=== PATIENT | male | born 1960 | race Hispanic/Latino ===

== ENCOUNTER 2017-02-19 07:23 | Observation (INO) | payer BC ==
[2017-02-19 07:26] VITALS: BMI 36.6
[2017-02-19 08:17] LABS: ADD MANUAL DIFF? NO
[2017-02-19 08:25] LABS: BASO # 0.07 K/mm3 (0.0-2.0); BASO % 0.7 % (0.0-3.0); EOS # 0.3 (0.0-0.7); EOS % 2.8 % (1.5-5.0); GRAN % 56.4 % (50.0-68.0); LYMPH # 2.9 (1.2-3.4); MEAN CORPUSCULAR HEMOGLOBIN 31.9 pg (25.0-35.0); MEAN CORPUSCULAR HGB CONC 35.4 g/dl (31.0-37.0); MEAN PLATELET VOLUME 9.9 fl (7.0-11.0); MONO % 10.1 % (1.0-6.0); PLATELET COUNT 151 10^3/uL (120.0-450.0); RED CELL DISTRIBUTION WIDTH 13.2 % (11.5-14.5); WHITE BLOOD COUNT 9.6 10^3/ul (4.5-11.0)
[2017-02-19 08:31] LABS: ALB/GLOB RATIO 1.2 (1.1-1.8); ALKALINE PHOSPHATASE 96 U/L (38-133); ALT/SGPT 51 U/L (7-56); AST/SGOT 41 U/L (15-59); BILIRUBIN,TOTAL 0.6 mg/dL (0.2-1.3); BLOOD UREA NITROGEN 11 mg/dL (7-21); CALCIUM 9.3 mg/dL (8.4-10.5); CARBON DIOXIDE 23 mmol/L (21-33); CHLORIDE 108 mmol/L (98-107); CHOLESTEROL 193 mg/dL (130-200); GFR AFRICAN-AMERICAN > 60; GLUCOSE,RANDOM 101 mg/dL (70-110); INR 1.02 (0.93-1.08); PARTIAL THROMBOPLASTIN TIME 26.1 Seconds (23.7-30.8); POTASSIUM 3.9 mmol/L (3.6-5.0); SODIUM 139 mmol/L (132-148)
[2017-02-19 08:49] LABS: TROPONIN I < 0.01 ng/mL
--- NOTE | 2017-02-19 09:03 | CT ---
PROCEDURE: CT HEAD WITHOUT CONTRAST. HISTORY: left sided weakness r/o cva COMPARISON: None available. TECHNIQUE: Axial computed tomography images were obtained through the head/brain without intravenous contrast. Radiation dose: Total exam DLP = 871 mGy-cm. This CT exam was performed using one or more of the following dose reduction techniques: Automated exposure control, adjustment of the mA and/or kV according to patient size, and/or use of iterative reconstruction technique. FINDINGS: HEMORRHAGE: No intracranial hemorrhage. BRAIN: No mass effect or edema. No atrophy or chronic microvascular ischemic changes. VENTRICLES: Unremarkable. No hydrocephalus. CALVARIUM: Unremarkable. PARANASAL SINUSES: Unremarkable as visualized. No significant inflammatory changes. MASTOID AIR CELLS: Unremarkable as visualized. No inflammatory changes. OTHER FINDINGS: None. IMPRESSION: Normal CT of the Head.
--- NOTE | 2017-02-19 09:06 | ED PDOC ---
Arrival/HPI - General Chief Complaint: Weakness/Neurological Deficit Time Seen by Provider: 02/19/17 07:28 Historian: Spouse - History of Present Illness Narrative History of Present Illness (Text): 02/19/17 07:30 A 56 year old male, whose past medical history includes hyperlipidemia and pre- diabetes, presents to the emergency department complaining of left arm weakness. Patient reports yesterday at 0430 he woke up from his sleep with left arm numbness and weakness. Patient notes later on that he had some numbness and weakness to the left foot. Patient say he was at work today and his co-worker noticed he was having trouble breathing, which quickly resolved. Patient states he did not notice or feel as though he was short of breath. Patient is concerned he might of had a stroke so he decided to come to the emergency department today for evaluation. Patient notes a mild headache yesterday but denies any fever, nausea, vomiting, chest douglas, or any other complaints at this time. Patient mention he has a intermittent cough for smoking and he uses the CPAP at night. PMD: Peyton from a clinic/ Dr. Nola Anderson Time/Duration: 24 hours Symptom Onset: Sudden Symptom Course: Unchanged Quality: Other Activities at Onset: Rest Context: Home Past Medical History - Provider Review Nursing Documentation Reviewed: Yes - Tetanus Immunization Tetanus Immunization: Up to Date - Past Medical History Past Medical History: No Previous - Cardiac Hx Cardiac Disorders: No - Pulmonary Hx Respiratory Disorders: Yes Hx Chronic Obstructive Pulmonary Disease (COPD): Yes Hx Sleep Apnea: Yes - Neurological Hx Neurological Disorder: No - HEENT Hx HEENT Disorder: No - Renal Hx Renal Disorder: No - Endocrine/Metabolic Hx Endocrine Disorders: No - Hematological/Oncological Hx Blood Disorders: No - Integumentary Hx Dermatological Disorder: No - Musculoskeletal/Rheumatological Hx Musculoskeletal Disorders: No - Gastrointestinal Hx Gastrointestinal Disorders: No - Genitourinary/Gynecological Hx Genitourinary Disorders: No - Psychiatric Hx Psychophysiologic Disorder: No Hx Depression: No Hx Emotional Abuse: No Hx Physical Abuse: No Hx Substance Use: No - Past Surgical History Past Surgical History: No Previous - Surgical History Hx Appendectomy: Yes - Suicidal Assessment Feels Threatened In Home Enviroment: No Family/Social History - Physician Review Nursing Documentation Reviewed: Yes Family/Social History: Unknown Family HX Smoking Status: Light Smoker < 10 Cigarettes Daily Hx Alcohol Use: No Hx Substance Use: No Hx Substance Use Treatment: No Allergies/Home Meds Allergies/Adverse Reactions: Allergies No Known Allergies Allergy (Verified 02/19/17 07:26) Home Medications: Home Meds Medication Instructions Recorded Confirmed Fluticasone/Vilanterol [Breo 1 inh INH DAILY 02/19/17 02/19/17 Ellipta 100-25 Mcg INH] Pramipexole [Mirapex] 0.25 mg PO HS 02/19/17 02/19/17 traMADol [Ultram] 50 mg PO PRN PRN 02/19/17 02/19/17 Review of Systems - Physician Review All systems were reviewed & negative as marked: Yes - Review of Systems Constitutional: absent: Fevers Respiratory: SOB, Cough Cardiovascular: absent: Chest Pain Gastrointestinal: absent: Abdominal Pain, Nausea, Vomiting Musculoskeletal: Other (left upper and lower extremity weakness and numbness) Neurological: Headache Physical Exam Vital Signs Reviewed: Yes Vital Signs Temp Pulse Resp BP Pulse Ox 02/19/17 09:23 73 18 98/76 L 97 02/19/17 07:23 98.3 F 78 18 125/55 L 99 Temperature: Afebrile Blood Pressure: Normal Pulse: Regular Respiratory Rate: Normal Appearance: Positive for: Well-Appearing, Non-Toxic, Comfortable Pain Distress: None Mental Status: Positive for: Alert and Oriented X 3 Finger Stick Blood Glucose: 104 - Systems Exam Head: Present: Atraumatic, Normocephalic Pupils: Present: PERRL Extroacular Muscles: Present: EOMI Conjunctiva: Present: Normal Mouth: Present: Moist Mucous Membranes Neck: Present: Normal Range of Motion Respiratory/Chest: Present: Clear to Auscultation, Good Air Exchange. No: Respiratory Distress, Accessory Muscle Use Cardiovascular: Present: Regular Rate and Rhythm, Normal S1, S2. No: Murmurs Abdomen: Present: Normal Bowel Sounds. No: Tenderness, Distention, Peritoneal Signs Back: Present: Normal Inspection Upper Extremity: Present: Other (slight weakness to the left upper extremity). No: Cyanosis, Edema Lower Extremity: Present: Normal Inspection. No: Edema Neurological: Present: GCS=15, CN II-XII Intact, Speech Normal, Normal Sensory Function, Normal Cerebellar Funct, Norm Deep Tendon Reflexes. No: Motor Func Grossly Intact (left hand weakness) Skin: Present: Warm, Dry, Normal Color. No: Rashes Psychiatric: Present: Alert, Oriented x 3, Normal Insight, Normal Concentration Medical Decision Making ED Course and Treatment: 02/19/17 07:30 Impression: A 56 year old male with left sided numbness/weakness. Differential Diagnosis include but are not limited to: ACS vs. CVA Plan: -- EKG -- Head CT -- Chest X-ray -- Labs -- Reassess and disposition Prior Visits: Notes and results from previous visits were reviewed. The patient last presented to the emergency department on 08/12/14 for evaluation of left ear pain. Progress Notes: EKG: Ordered, reviewed, and independently interpreted the EKG. Rate : 82 BPM Rhythm : NSR Interpretation : No ST-segment elevations or depressions, no T-wave inversions, normal intervals. Chest X-ray Impression: As read by the emergency department physician, no acute findings. 02/19/17 09:[address] Shaver, who is aware and accept the patient under his services to rule out CVA. I have discussed the results and plan with the patient, who expresses understanding. Patient given the opportunity to ask question, all questions were answered and there is agreement with the plan to be admitted to the hospital. 02/19/17 09:[address]: Creator : Jalen Elise MD COMPARISON: None available. FINDINGS: HEMORRHAGE: No intracranial hemorrhage. BRAIN: No mass effect or edema. No atrophy or chronic microvascular ischemic changes. VENTRICLES: Unremarkable. No hydrocephalus. CALVARIUM: Unremarkable. PARANASAL SINUSES: Unremarkable as visualized. No significant inflammatory changes. MASTOID AIR CELLS: Unremarkable as visualized. No inflammatory changes. OTHER FINDINGS: None. IMPRESSION: Normal CT of the Head. CT head negative. Aspirin ordered. Case discussed with Dr. Shaver who evaluated patient and will place to his service for r/o CVA. Patient comfortable with no new complaints. - Critical Care Critical Care Minutes: 30 minutes - Lab Interpretations Lab Results: 02/19/17 08:15 02/19/17 08:15 Lab Results 02/19/17 08:37: Blood Type O NEGATIVE, Antibody Screen Negative, BBK History Checked No verified bt 02/19/17 08:15: Sodium 139, Potassium 3.9, Chloride 108 H, Carbon Dioxide 23, Anion Gap 12, BUN 11, Creatinine 1.1, Est GFR ( Amer) > 60, Est GFR (Non- Af Amer) > 60, Random Glucose 101, Calcium 9.3, Total Bilirubin 0.6, AST 41, ALT 51, Alkaline Phosphatase 96, Troponin I < 0.01, NT-Pro-B Natriuret Pep < 11.1, Total Protein 8.0, Albumin 4.3, Globulin 3.7, Albumin/Globulin Ratio 1.2, Triglycerides 199 H, Cholesterol 193, LDL Cholesterol Direct 139 H, HDL Cholesterol 36 02/19/17 08:15: PT 11.0, INR 1.02, APTT 26.1 02/19/17 08:15: WBC 9.6, RBC 5.11, Hgb 16.3, Hct 46.0, MCV 90.0, MCH 31.9, MCHC 35.4, RDW 13.2, Plt Count 151, MPV 9.9, Gran % 56.4, Lymph % (Auto) 30.0, [place] % (Auto) 10.1 H, Eos % (Auto) 2.8, Baso % (Auto) 0.7, Gran # 5.40, Lymph # 2.9, Traverse # 1.0 H, Eos # 0.3, Baso # 0.07 02/19/17 07:31: POC Glucose (mg/dL) 104 I have reviewed the lab results: Yes Interpretation: All labs normal - RAD Interpretation Radiology Orders: 02/19/17 08:05 HEAD W/O CONTRAST [CT] Stat CHEST PORTABLE [RAD] Stat Child Welfare Consultant: Radiologist - Medication Orders Current Medication Orders: Home Med (Home Med) 1 unit INH DAILY [facility] Sodium Chloride (Sodium Chloride 0.45%) 1,000 mls @ 30 mls/hr IV .Q24H [facility] Last Admin: 02/19/17 09:48 Dose: 30 mls/hr Pramipexole Dihydrochloride (Mirapex) 0.25 mg PO HS [place] Tramadol HCl (Ultram) 50 mg PO BID PRN PRN Reason: Pain, moderate (4-7) Discontinued Medications Aspirin (Aspirin) 325 mg PO STAT STA Stop: 02/19/17 09:17 Last Admin: 02/19/17 09:36 Dose: 325 mg NIHSS Scale ([place]) Time Performed: 07:30 - How Severe is the Stoke Baseline Level of Consciousness: 0=Alert LOC to Questions: 0=Both comments correct LOC to commands: 0=Obeys both correctly Best Gaze: 0=Normal Visual: 0=No visual loss Facial: 0=Normal Motor Arm - Left: 0=No drift Motor Arm - Right: 0=No drift Motor Leg - Left: 0=No drift Motor Leg - Right: 0=No drift Limb Ataxia: 0=Absent Sensory: 0=Normal Best Language: 0=No aphasia Dysarthia: 0=Normal articulation Extinction & Inattention (Neglect): 0=Normal, no object Score: 0 Risk Level: No Stroke Risk rTPA Inclusion/Exclusion - Refusal of Treatment Patient Refused Treatment: No - Inclusion Criteria for Altepase Patient is 18 years or Older: Yes The Clinical Diagnosis of Ischemic Stroke That is Causing a Potentially Disabling Neurological Deficit: Yes Time of Onset is Well Established to be Less Than 270 Minute Before Treatment Would Begin: No Risk/Benefit Discussed With Patient/Family Member Present: No - Scribe Statement Gale Powers Provider Scribe Attestation: All medical record entries made by the Scribe were at my direction and personally dictated by me. I have reviewed the chart and agree that the record accurately reflects my personal performance of the history, physical exam, medical decision making, and the department course for this patient. I have also personally directed, reviewed, and agree with the discharge instructions and disposition. Disposition/Present on Arrival - Present on Arrival Any Indicators Present on Arrival: No History of DVT/PE: No History of Uncontrolled Diabetes: No Urinary Catheter: No History of Decub. Ulcer: No History Surgical Site Infection Following: None - Disposition Have Diagnosis and Disposition been Completed?: Yes Diagnosis: CVA (cerebral vascular accident) Disposition: HOSPITALIZED Disposition Time: 09:01 Patient Plan: Observation Condition: FAIR
[2017-02-19] MEDS ORDERED: Sodium Chloride 0.45% 1,000 ML IV SCH (09:15)
[2017-02-19 10:09] VITALS: O2SAT 97
--- NOTE | 2017-02-19 11:40 | RAD ---
PROCEDURE: CHEST RADIOGRAPH, 1 VIEW HISTORY: sob COMPARISON: None available. FINDINGS: LUNGS: Clear. PLEURA: No pneumothorax or pleural fluid seen. CARDIOVASCULAR: Normal. OSSEOUS STRUCTURES: No significant abnormalities. VISUALIZED UPPER ABDOMEN: Normal. OTHER FINDINGS: None. IMPRESSION: No active disease.
--- NOTE | 2017-02-19 11:47 | MRI ---
PROCEDURE: MRI BRAIN WITHOUT CONTRAST HISTORY: r/o cva COMPARISON: None. TECHNIQUE: Multiplanar, multisequence MR images of the brain were obtained without intravenous contrast enhancement. FINDINGS: HEMORRHAGE: None DWI: No evidence of an acute or early subacute infarction. BRAIN PARENCHYMA: No mass effect or edema. No atrophy or chronic microvascular ischemic changes. VENTRICLES: Unremarkable. No hydrocephalus. CRANIUM: Unremarkable. ORBITS: Grossly unremarkable. PARANASAL SINUSES/MASTOIDS: Clear VASCULAR SYSTEM: Skull base flow voids intact. OTHER FINDINGS: None. IMPRESSION: Unremarkable non contrast enhanced MRI of the brain.
--- NOTE | 2017-02-19 12:29 | HP ---
I was called down to the ER by Dr. Alvarez, the Emergency Room doctor, to check on the patient. He i s having some strange feelings in his body, mostly on the left side with numbness and tingling, a lit tle bit of weakness, also some weird feelings in his chest like electrical feelings that are going th rough his chest. PAST MEDICAL HISTORY: Prediabetes, COPD, on CPAP. He is obese, just not feeling well, started yeste rday at 4:30. He is also having numbness and tingling in his lower extremities. ALLERGIES: He has no known drug allergies. He takes Mirapex and Ultram at home. No known surgeries at this time. REVIEW OF SYSTEMS: No acute vision changes or hearing changes, but numbness and tingling in his face and lips and tongue. No sore throat. Mild chest discomfort on the left side with electric shocks g oing through the left side of his chest. No shortness of breath unless at nighttime from his COPD, h e is on CPAP, but nothing acute at this time, no changes in his breathing. No nausea, vomiting, cons tipation, diarrhea. Extremities have trace edema. He can move the legs and arms. The left side is weaker than the right side with numbness and tingling also. PHYSICAL EXAMINATION: VITAL SIGNS: Temp 98.3, 78 pulse, 125/55 blood pressure, 18 respiratory rate, 99% O2 sat on room air . HEENT: His head is atraumatic, normocephalic. His extraocular muscles are intact. Pupils equally r eactive to light and accommodation. Tongue is midline. Throat is moist. NECK: Supple. HEART: Regular rate. LUNGS: Decreased breath sounds bilaterally, but clear to auscultation, fair effort. ABDOMEN: Soft, positive bowel sounds, morbidly obese, nontender. EXTREMITIES: Trace edema. NEUROLOGIC: He has got numbness and tingling on both sides. The left side is a little bit weaker th an the right side, maybe +3/5 strength on the left, +4/5 strength on the right. He has a 139 sodium, potassium 3.9, BUN 11, creatinine 1.1, GFR is greater than 60, sugar is 101, te cium is 9.3, total bili is 0.6, AST is 41, ALT is 51, alk phos 96. Troponin I is less than 0.01. BN P is 11.1. Total protein is 8, albumin is 4.3, globulin 3.7, albumin/globulin ratio is 1.2. Triglyc erides are 199, cholesterol is 193, LDL is 139, HDL is 36. INR is 1.02. White count 9.6, hemoglobin 16.3, hematocrit 46, platelets 151. There is a CAT scan of the head pending, a chest x-ray pending. I will order carotid Dopplers. I wi ll order MRI of the brain. I consulted cardio, neurology and pulmonary. He is going to be watched i n observation overnight. We are checking him for troponins and to make sure we are not missing a str gurinder. I discussed this at length with the patient. He understands the plan that we are going to watc h him overnight and make sure that we do not miss anything, see what the route deliverer and the pulmono logist and the neurologist has to say. He is here for transient ischemic attack, rule out cerebrovascular accident. Hopefully, he will reso lve. Phil Shaver DO cc: [id number] TT: 02/19/2017 12:28:47 en
--- NOTE | 2017-02-19 15:39 | CON ---
DATE: 02/19/2017 CHIEF COMPLAINT: Some paresthesias on the left side. HISTORY OF PRESENT ILLNESS: This I a 56-year-old man with a history of COPD on CPAP and hypertension who came to the hospital because he said he started to have generalized weakness and felt like some tingling sensation in his left side as well as numbness. No focal weakness in the extremities. His MRI of the brain is unremarkable. He is moving all extremities equally. No focal weakness in the ex tremities at this time. He is currently stable. He was having some worsening shortness of breath, w hich could have exacerbated his COPD causing paresthesias. PAST MEDICAL HISTORY: Is prediabetic, COPD on CPAP and hypertension. ALLERGIES: No known drug allergies. SOCIAL HISTORY: No illicit drug use, smoking, or ETOH abuse. MEDICATIONS: Reviewed via nurses' reconciliation sheet. REVIEW OF SYSTEMS: A 14-point review of systems is negative except for the HPI. ALLERGIES: No known drug allergies. FAMILY HISTORY: Noncontributory. PHYSICAL EXAMINATION: VITAL SIGNS: Temperature 98.3, pulse rate 73, blood pressure 98/76, respiratory rate of 18, oxygen 9 7% on room air. GENERAL: The patient is sitting up in bed in no acute distress. HEENT: Atraumatic, normocephalic. PERRLA. Extraocular muscles intact. NECK: Supple, no JVD, no adenopathy noted. LUNGS: Clear to auscultation. No adventitious sounds. HEART: S1, S2, normal rate and rhythm. No murmurs, rubs, or gallops. ABDOMEN: Soft, nontender, nondistended. Bowel sounds are present. EXTREMITIES: No clubbing, no cyanosis. Peripheral pulses 2+ felt bilaterally. NEUROLOGIC: The patient is alert, oriented to person, place, month and year. Speech is fluent, with out any errors. Cranial nerves II through XII intact. MOTOR: Strength is 5/5 in both upper and lower extremities. Normal tone. Moves all extremities equ ally. No pronator drift seen. SENSORY: Light touch, pinprick, proprioception, vibration intact. DTRs are 2+ throughout. COORDINATION: [id number] intact. GAIT: Deferred for now. LABORATORIES: Sodium is 139, potassium 3.9, chloride of 108, carbon dioxide 23, BUN of 11, creatinin e 1.1. Random glucose of 101. Triglycerides 199. Cholesterol 183. ASSESSMENT AND PLAN: This is a 56-year-old man with a past medical history of chronic obstructive pu lmonary disease on CPAP, hypertension and dyslipidemia who presented with some paresthesias on the le ft side of his face as well as tongue and left side chest as well as left upper extremity. Currently , his neuro exam is nonfocal. His MRI of the brain is unremarkable for any acute abnormalities. I f eel like his presenting symptoms could be likely secondary to his underlying COPD since he is on CPAP with a possible derangement in his CO2 flow causing paresthesias versus a questionable transient isc hemic attack. At this time, he is clinically stable. Recommend aspirin 81 mg p.o. daily as well as Lipitor 40 mg p.o. daily for dyslipidemia. He is clinically stable from my standpoint. Advise weigh t reduction and exercise to drop weight in order to help him with his underlying sleep apnea. Contin ue with CPAP daily night. Thank you for this consult. We will sign off. Mykel Redd MD cc: [phone] TT: 02/19/2017 15:39:31 Confirmation # [id number] Dictation # [id number] dn
--- NOTE | 2017-02-19 18:10 | CON ---
DATE: 02/19/2017 This consultation is being done on behalf of Dr. Gonzalez, whom I am covering. REASON FOR CONSULTATION: Chest pain and shortness of breath. HISTORY OF PRESENT ILLNESS: The patient with known case of sleep apnea for many years, uses CPAP at night and the patient admitted with a history that when he walks he gets shortness of breath and he w as getting chest pain, which was like electrical waves were coming in the chest and disappearin g and coming back again. On walking, he does not have any tightness in the chest. On walking he get s shortness of breath. The patient is known to have borderline blood pressure and diabetes and he sm okes about 1 pack a day also and the patient also known to have obesity. PAST MEDICAL HISTORY: Positive for sleep apnea using CPAP, borderline hypertension and diabetes. PAST SURGICAL HISTORY: The patient had surgery on the right knee in the past, had also appendectomy and he had cervical spinal surgery. PERSONAL HISTORY: Smokes about 1 pack a day and denies drinking. ALLERGIES: The patient does not have any allergies. FAMILY HISTORY: Mother had diabetes and blood pressure, sisters have diabetes and high blood pressur e. REVIEW OF SYSTEMS: All the systems were reviewed; positives mentioned in the history, others were ne gative. PHYSICAL EXAMINATION: VITAL SIGNS: Blood pressure 125/55, respirations 18, pulse 78, temperature 98.3. HEENT: Head is normocephalic. Eyes: Pupils normal. Conjunctivae normal. Nose and throat normal. NECK: JVP low. Carotid equal. THORAX: AP diameter normal. LUNGS: Clear. CARDIOVASCULAR: S1, S2. ABDOMEN: Protuberant. No organomegaly. Bowel sounds normal. EXTREMITIES: No clubbing, no cyanosis. LABORATORY DATA: WBC 9.6, hemoglobin 16.3, hematocrit 46.0, platelet 151. Sodium 139, potassium 3.9 , BUN 11, creatinine 1.1, glucose 101. Calcium, bilirubin, AST and ALT normal. Troponin less than 0 .01. Total protein and albumin normal. Triglyceride 199, cholesterol 193, HDL 36, LDL 139. EKG mati wed regular sinus rhythm. Chest x-ray, no abnormality. CAT scan of the head was normal. Brain MRI also was unremarkable. DIAGNOSES: Chest pain, atypical; shortness of breath on exertion due to use obesity, sleep apnea and also smokes 1 pack a day. The patient felt numbness of the left arm when he woke up from sleep, whi ch was relieved by itself; probably related to his with sleep and obesity. PLAN: The patient is on Mirapex 0.25 mg at bedtime. Aspirin 325 mg has been given. Will put on Eco rocío 81 mg daily. Will check TSH. Advised the patient to lose weight and advised the patient to sto p smoking. Dr. Gonzalez will follow the patient starting tomorrow. Violette Orta MD cc: [phone] TT: 02/19/2017 18:09:10 Confirmation # [id number] Dictation # [id number] dn
[2017-02-19] MEDS: BREO ELLIPTA INH SCH (18:12)
--- NOTE | 2017-02-19 18:50 | CARD ---
APPROVED REPORT EKG Measurement Heart [id number] <Conclusion> Normal sinus rhythm Normal ECG
[2017-02-20 06:44] VITALS: BP 130/74; PULSE 98; RESP 20; TEMP 97.8
[2017-02-20 06:55] LABS: HEMATOCRIT 45.2 % (42.0-52.0); MEAN CELL VOLUME 90.8 fL (80.0-105.0); MEAN CORPUSCULAR HEMOGLOBIN 31.5 pg (25.0-35.0); MEAN CORPUSCULAR HGB CONC 34.7 g/dl (31.0-37.0); MEAN PLATELET VOLUME 9.9 fl (7.0-11.0); RED CELL DISTRIBUTION WIDTH 13.4 % (11.5-14.5); WHITE BLOOD COUNT 9.7 10^3/ul (4.5-11.0)
[2017-02-20 07:19] LABS: ALB/GLOB RATIO 1.2 (1.1-1.8); ALKALINE PHOSPHATASE 87 U/L (38-133); ALT/SGPT 50 U/L (7-56); AST/SGOT 37 U/L (15-59); BILIRUBIN,TOTAL 0.6 mg/dL (0.2-1.3); BLOOD UREA NITROGEN 13 mg/dL (7-21); CALCIUM 9.1 mg/dL (8.4-10.5); CARBON DIOXIDE 24 mmol/L (21-33); CHLORIDE 108 mmol/L (98-107); GFR AFRICAN-AMERICAN > 60; GLUCOSE,RANDOM 88 mg/dL (70-110); POTASSIUM 3.6 mmol/L (3.6-5.0); SODIUM 139 mmol/L (132-148); TOTAL PROTEIN 7.1 g/dL (5.8-8.3)
--- NOTE | 2017-02-20 10:06 | CON ---
DATE: 02/20/2017 PULMONARY CONSULTATION REFERRING PHYSICIAN: Phil Shaver DO. REASON FOR CONSULTATION: Obstructive sleep apnea. HISTORY OF PRESENT ILLNESS: The patient is a 56-year-old male with past medical history significant for chronic obstructive pulmonary disease, obstructive sleep apnea (compliant with CPAP at night), hyperlipidemia, who presents to [facility] with main complaints of left arm weakness and numbness. The patient also states to some left foot weakness and numbness - but to a lesser extent than the upper extremity. Lastly,when the patient was at work, his coworkers noted that he did not look good. His coworkers also thought that he was short of breath. The patient then came to the Emergency Room for additional evaluation and treatment. The patient denies shortness of breath at rest or dyspnea on exertion since he has been in the hospital. There is no history of cough or sputum production. There is no history of chest pain, coughing up of blood, or chest pain - made worse with deep respirations. There is no history of temperatures, chills, or infectious exposure. There is no history of night sweats, weight loss, or appetite change prior to the above events. No history of calf pains. No history of syncope or diaphoresis. No history of recent travel or trauma. REVIEW OF SYSTEMS: No history of nausea, vomiting, or diarrhea. No acute urinary symptoms. The rest of the review of systems is negative. ALLERGIES: No known allergies. SOCIAL HISTORY: Positive for tobacco, negative for alcohol. FAMILY HISTORY: No inheritable diseases. HOME MEDICATIONS: Include Ultram, Mirapex, and Breo Ellipta. PHYSICAL EXAMINATION: GENERAL: The patient appears very comfortable this morning. He is not short of breath at rest. VITAL SIGNS: Temperature is 97.8. Pulse on the monitor is 84, respiratory rate 18, blood pressure 130/74. Oxygen saturation on room air is 97%. HEENT: Normocephalic, atraumatic. NECK: No JVD. CARDIOVASCULAR: Positive S1, S2. No S3. LUNGS: Clear bilaterally. EXTREMITIES: No clubbing, cyanosis, or edema. Calves are nontender to palpation. GASTROINTESTINAL: Abdomen is soft, nontender, nondistended. Bowel sounds are positive. SKIN: No acute rash. NEUROLOGIC: Limited at the present time. I will defer to neurology. PERTINENT LABORATORY DATA: Chest x-ray was done yesterday and reviewed. There is no active disease. Complete metabolic profile: Chloride 108, triglycerides 199, LDL 139. The rest of the metabolic profile is within normal limits. CBC: White count 9.6, hemoglobin 16.3, hematocrit 46.0, platelets of 151. IMPRESSION: 1. Acute neurologic deficits - resolving - rule out central event. 2. Obstructive sleep apnea. 3. Chronic obstructive pulmonary disease. 4. Hyperlipidemia. PLAN: The patient presents to [facility] with main complaints of left arm numbness and weakness. As above, he also complained of left foot numbness and weakness - but to a lesser extent than his upper extremity. Also noted above, his coworkers told him that he did not look well, and they though he was short of breath. He then went to the Emergency Room for additional evaluation. Since his admission, the patient has not experienced shortness of breath at rest or dyspnea on exertion. In fact, he offers no significant pulmonary symptoms. I did review the chest x-ray as above. It shows no acute disease. On physical exam, his lungs are clear. Oxygen saturation on room air is 97%. He is using his CPAP from home. He may also use his Breo Ellipta - while in the hospital. Neurology and cardiology evaluations are noted. The patient does feel significantly better this morning. He has no left foot symptoms. He also states that his left arm is not numb any more, and is considerably stronger compared to yesterday. Again, I will leave the neurologic evaluation to Dr. Redd. His input is noted. Additional pulmonary intervention will be based on the clinical status of the patient. I will discuss the above with Dr. Shaver this morning. Thank you very much for this pulmonary consultation. Nilo Perez MD cc: [id number] TT: 02/20/2017 10:05:53 Confirmation # [id number] Dictation # [id number] FEDERICO
--- NOTE | 2017-02-20 11:29 | PN ---
DATE: 02/20/2017 CARDIOLOGY FOLLOWUP The patient's numbness in his left upper extremity is better. There is no chest pain noted. PHYSICAL EXAMINATION: VITAL SIGNS: Blood pressure is 130/74. Heart rate in the 90s, normal sinus rhythm. NECK: Negative JVD. LUNGS: Without rales. HEART: S1, S2. EXTREMITIES: Without edema. LABORATORY DATA: Troponins are negative x 2. The glucose is 122. The hemoglobin is 15.7. IMPRESSION: 1. Transient ischemic attack. 2. Chronic obstructive pulmonary disease. 3. History of sleep apnea. 4. Atypical chest pain. 5. No evidence for acute coronary syndrome. 6. High probability for coronary artery disease. Given these findings, from a cardiac perspective, there is no evidence for acute coronary syndrome. The patient can be discharged. I have discussed with the patient in detail about his need to stop sm oking. The patient is for an outpatient stress test next week. Harris Gonzalez MD cc: [id number] TT: 02/20/2017 11:28:17 Confirmation # [id number] Dictation # [id number]
[2017-02-20] MEDS: BREO ELLIPTA INH SCH (12:15)
--- NOTE | 2017-02-20 19:02 | DS ---
He is resting comfortably in bed. All of his symptoms have resolved. No more numbness or tingling. He is breathing better, slept well, in good spirits. It is very possible it is going to be related to a transient ischemic attack versus COPD. He will go home on aspirin, Lipitor, Mirapex, and Ultram as needed. He is advised to quit smoking and lose weight. I discussed it at length with him. PHYSICAL EXAMINATION: VITAL SIGNS: He has a 97.8 temp, 97 pulse, 130/74 blood pressure, 20 respiratory rate, 97% O2 sat on room air. HEAD: Atraumatic, normocephalic. HEART: Regular rate. LUNGS: Clear to auscultation with decreased breath sounds. ABDOMEN: Soft, obese, nontender. EXTREMITIES: No edema. LABORATORY DATA: He has a 139 sodium, potassium 3.6, BUN 13, creatinine 1.1, GFR is greater than 60, sugar is 88, calcium is 9.1, total bili is 0.6, AST is 37, ALT is 50, alkaline phosphatase is 87. All troponins are less than 0.01. Total protein 7.1. CBC has a 9.7 white count, a 15.7 hemoglobin, a 45.2 hematocrit with 136 platelets. INR is 1.02. TSH ordered, and will check that. He is being seen by cardio and neurology. MRI was okay. The plan is to be discharged. He will go home on the above meds. I will write prescriptions. He will follow up with his primary care physician as an outpatient and he should quit smoking and lose weight. Phil Shaver DO cc: [id number] TT: 02/20/2017 19:01:20 melvin CABALLERO
--- NOTE | 2017-02-20 19:05 | US ---
PROCEDURE: Bilateral carotid artery duplex ultrasound HISTORY: Carotid stenosis TIA PHYSICIAN(S): Harris Ortega MD. TECHNIQUE: Duplex sonography and color-flow Doppler were used to evaluate the carotid bifurcations and limited segments of the vertebral arteries bilaterally. FINDINGS: The exam is limited by body habitus. There is mild smooth heterogeneous plaque noted at the carotid bifurcations bilaterally. The peak systolic velocity in the proximal right internal carotid artery is 79 cm/sec. This corresponds to a 20 to 39% proximal right ICA stenosis. Normal systolic velocities are noted in the proximal right external carotid artery. There is antegrade flow in the right vertebral artery. The peak systolic velocity in the proximal left internal carotid artery is 85 cm/sec. This corresponds to a 20 to 39% proximal left ICA stenosis. Normal systolic velocities are noted in the proximal left external carotid artery. There is antegrade flow in the left vertebral artery. IMPRESSION: 1. Bilateral 20-39% proximal ICA stenoses. 2. Antegrade flow in both vertebral arteries.
== END 2017-02-20 13:09 | disposition home or self-care (01) ==
LOC: ED 07:23 → ERH 09:04 → 2RNO 11:39
PROVIDERS: ADMIT Family Medicine; ATTEND Family Medicine
DX: J44.9 Chronic obstructive pulmonary disease, unspecified (principal); R20.9 Unspecified disturbances of skin sensation; G45.9 Transient cerebral ischemic attack, unspecified; E78.5 Hyperlipidemia, unspecified; I10 Essential (primary) hypertension; G47.33 Obstructive sleep apnea (adult) (pediatric); F17.210 Nicotine dependence, cigarettes, uncomplicated; E11.9 Type 2 diabetes mellitus without complications; Z83.3 Family history of diabetes mellitus; Z90.49 Acquired absence of other specified parts of digestive tract; Z82.49 Family history of ischemic heart disease and other diseases of the circulatory system; R40.2412 Glasgow coma scale score 13-15, at arrival to emergency department; Z68.36 Body mass index [BMI] 36.0-36.9, adult; E66.01 Morbid (severe) obesity due to excess calories; R07.89 Other chest pain; R29.818 Other symptoms and signs involving the nervous system; I25.10 Atherosclerotic heart disease of native coronary artery without angina pectoris
CPT/HCPCS: 36415; 70450; 70551; 71010; 80053; 80061; 82948; 83036; 83880; 84484; 85025; 85027; 85610; 85730; 86850; 86900; 93005; 93880; 97116; 97161; 99285; G0378; G8978; G8979; G8980; J7030